=== PATIENT | female | born 1990 | race Caucasian/White ===

== ENCOUNTER 2016-09-24 11:16 | Emergency (ER) | payer OTHER | END 2016-09-24 14:20 | disposition home or self-care (01) | LOC: ER1 11:16 | DX: M51.86 Other intervertebral disc disorders, lumbar region (principal); Z88.0 Allergy status to penicillin; V43.52XA Car driver injured in collision with other type car in traffic accident, initial encounter | CPT/HCPCS: 72131; 84703; 96372; 99284; J1885 ==

== ENCOUNTER 2021-07-25 05:08 | Inpatient (IN) | payer OTHER ==
[2021-07-25 05:35] LABS: HEMOGLOBIN 12.5 gm/dl (12.3-15.3); RED BLOOD COUNT 4.07 M/UL (4.00-5.10); WHITE BLOOD COUNT 15.1 K/UL (4.5-11.0)
[2021-07-25] MEDS ORDERED: PERCOCET 5/325 T1 EA PO (07:35)
[2021-07-25] MEDS ORDERED: HEMOCYTE324 MG PO (07:35)
[2021-07-25] MEDS ORDERED: COLACE100 MG PO (07:35)
[2021-07-25] MEDS ORDERED: IBUPROFEN800 MG PO (07:35)
[2021-07-25] MEDS ORDERED: GABAPENTIN800 MG PO (09:47)
[2021-07-25] MEDS ORDERED: ULTRAM50 MG PO (09:47)
[2021-07-25] MEDS ORDERED: CYCLOBENZAPRINE10 MG PO (09:48)
[2021-07-25] MEDS ORDERED: ACETAZOLAMIDE500 MG PO (09:49)
[2021-07-25] MEDS ORDERED: AMITRIPTYLINE H10 MG PO (09:50)
[2021-07-25] MEDS ORDERED: CYMBALTA20 MG PO (09:52)
[2021-07-26 06:42] LABS: HEMOGLOBIN 10.5 gm/dl (12.3-15.3)
== END 2021-07-26 12:52 | disposition home or self-care (01) | DRG 787 ==
LOC: OB 05:08
PROVIDERS: Obstetrics & Gynecology; ADMIT Obstetrics & Gynecology
PROC: 4A1HXCZ Monitoring of Products of Conception, Cardiac Rate, External Approach (ICD-10-PCS; 2021-07-25)
PROC: 10D00Z1 Extraction of Products of Conception, Low, Open Approach (ICD-10-PCS; principal; 2021-07-25 09:00)
DX: O34.211 Maternal care for low transverse scar from previous cesarean delivery (principal); O41.03X0 Oligohydramnios, third trimester, not applicable or unspecified; O76 Abnormality in fetal heart rate and rhythm complicating labor and delivery; Z3A.38 38 weeks gestation of pregnancy; Z37.0 Single live birth; Z98.84 Bariatric surgery status; Z98.890 Other specified postprocedural states; Z83.3 Family history of diabetes mellitus; Z82.49 Family history of ischemic heart disease and other diseases of the circulatory system; Z88.1 Allergy status to other antibiotic agents; Z88.0 Allergy status to penicillin
CPT/HCPCS: 36415; 82800; 85014; 85018; 85025; C9113; J1200; J1580; J1644; J1885; J2274; J2370; J2590; J2795; J3010